=== PATIENT | male | born 1940 | race Caucasian/White ===

== ENCOUNTER → 2019-10-11 12:49 | Outpatient (CLI) | payer MEDICARE, SELFPAY ==
--- NOTE | 2019-10-11 13:00 | XR_ITS ---
PROCEDURE: XR CERVICAL SPINE 5V CLINICAL INDICATION: LT SHOULDER PAIN LEFT SHOULDER PAIN, NECK PAIN COMPARISON: No exams were available for comparison FINDINGS: There is normal alignment. There is degenerative disc disease at C5-C6 and C6-C7. Facet arthritic changes are present from C3-C7. There is foraminal narrowing on the right at C3-C4, C5-C6 and on the left at C3-C4 C4-C5 and C5-C6. No fracture or dislocation. There is mild biapical thickening of the lungs. 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
== END ==
PROVIDERS: PCP Family Medicine; Visit Provider Family Medicine
DX: M25.512 Pain in left shoulder (principal)
CPT/HCPCS: 72050

== ENCOUNTER → 2020-07-19 11:00 | Outpatient (CLI) | payer MEDICARE, SELFPAY ==
[2020-07-20 10:56] LABS: Covid-19 Nasal PCR Sendout P&C Negative
== END ==
PROVIDERS: PCP Family Medicine; Visit Provider Nurse Practitioner Family
DX: Z20.822 Contact with and (suspected) exposure to COVID-19 (principal)
CPT/HCPCS: U0004

== ENCOUNTER → 2022-12-03 09:55 | Outpatient (CLI) | payer MEDICARE, SELFPAY ==
--- NOTE | 2022-12-03 | CA_ITS ---
FINAL REPORT CLINICAL HISTORY: HTN, Rt carotid bruit COMPARISON: none FINDINGS: RIGHT CAROTID: CCA PSV: 121 cm/sec ICA PSV: 124 cm/sec ICA/CCA PSV ratio: 1.20 . Comments: Mild plaque disease is noted. LEFTCAROTID: CCA PSV: 167 cm/sec ICA PSV: 114 cm/sec ICA/CCA PSV ratio: 0.83 . Comments: Mild plaque disease is noted. Antegrade flow is seen within the vertebral arteries. Dominant mass in the left thyroid. Recommend dedicated thyroid ultrasound. IMPRESSION: Less than 50% bilateral stenosis. Dominant mass left thyroid. Recommend dedicated thyroid ultrasound. Reviewed, Interpreted and Dictated by Fma Devine MD Transcribed by Vaishali Asencio Authenticated and . [facility]
== END ==
LOC: RT 09:55
PROVIDERS: PCP Family Medicine; Visit Provider Family Medicine
DX: R09.89 Other specified symptoms and signs involving the circulatory and respiratory systems (principal)
CPT/HCPCS: 93880

== ENCOUNTER → 2022-12-24 10:42 | Outpatient (CLI) | payer MEDICARE, SELFPAY ==
--- NOTE | 2022-12-24 10:47 | US_ITS ---
FINAL REPORT CLINICAL HISTORY: THYROID MASS,NECK MASS COMPARISON: None FINDINGS: Thyroid ultrasound: The right thyroid gland measures 4.4 x 1.9 x 1.5 cm in size. No focal masses or nodules are identified. The left thyroid gland is slightly enlarged, measuring 5.1 x 2.6 x 2.6 cm in size. There is a small cyst identified in the left thyroid gland, which measures 1 x 0.6 x 0.5 cm in size, compatible with a TI-RADS 1 category nodule. There is a dominant mass measuring 3 x 2.6 x 2.5 cm, solid, isoechoic, category TI-RADS 3. The isthmus measures 0.5 cm in thickness. IMPRESSION: Left lobe of the thyroid gland, solid, isoechoic, and a TI-RADS category 3 nodule. Would recommend ultrasound-directed biopsy. Small cystic mass left lobe of thyroid up to 1 cm in greatest diameter, TI-RADS category 1. Reviewed, Interpreted and Dictated by Gonzales Cedeno III, MD Transcribed by Serene Kelley Authenticated and [facility]
== END ==
PROVIDERS: PCP Family Medicine; Visit Provider Family Medicine
DX: R07.9 Chest pain, unspecified (principal); R22.1 Localized swelling, mass and lump, neck
CPT/HCPCS: 76536

== ENCOUNTER → 2023-01-21 07:40 | Outpatient (CLI) | payer MEDICARE, SELFPAY ==
--- NOTE | 2023-01-21 07:45 | US_ITS ---
FINAL REPORT CLINICAL HISTORY: LT NODULE FINDINGS: ULTRASOUND GUIDED THYROID BIOPSY HISTORY: Left thyroid nodule/mass. TECHNIQUE: Informed consent was obtained from the patient. Timeout procedure was performed prior to beginning. Limited sonographic evaluation of thyroid gland was performed to localize lesion of interest. The neck was prepped in a routine sterile fashion and locally anesthetized with 1% lidocaine. FNA was performed with 25-gauge needle under direct sonographic visualization. 4 passes were made. Cytology is pending. Procedure was well tolerated, although patient did experience some lightheadedness during the procedure. CONCLUSION: Technically successful thyroid fine needle aspiration of a left thyroid mass. Reviewed, Interpreted and Dictated by Fam Devine MD Transcribed by Linda Chowdhury PA-C Authenticated and [facility]
== END ==
PROVIDERS: PCP Family Medicine; Visit Provider Otolaryngology
DX: D44.0 Neoplasm of uncertain behavior of thyroid gland (principal)
CPT/HCPCS: 10005; 76536; 88173

== ENCOUNTER 2024-01-29 09:40 | Outpatient (CLI) | payer MEDICARE, SELFPAY ==
--- NOTE | 2024-01-29 09:46 | US_ITS ---
FINAL REPORT TECHNIQUE: Real-time grayscale and color ultrasound of the thyroid was performed. CLINICAL HISTORY: NEOPLASM/THYROID GLAND COMPARISON: 01/21/2023 FINDINGS: The thyroid gland measures 4.9 x 1.8 x 1.4 cm on the right and 5.3 x 3.9 x 3.0 cm on the left. The isthmus measures 0.9 cm. The parenchyma is unremarkable . Nodules: 3.2 x 3.0 cm left TR 4 lesion has previously been biopsied. Multiple subcentimeter anechoic and solid structures in both lobes of the thyroid are stable. 1.4 cm TR 4 nodule superior left lobe. IMPRESSION: Dominant 3.2 cm mass left lobe of the thyroid has previously been biopsied. Other lesions appear stable. Reviewed, Interpreted and Dictated by Blaise Conde MD Transcribed by Vaishali Asencio Authenticated and [facility]
== END 2024-01-29 23:59 | disposition home or self-care (01) ==
LOC: RAD 09:41
PROVIDERS: PCP Family Medicine; Visit Provider Otolaryngology
DX: D44.0 Neoplasm of uncertain behavior of thyroid gland (principal)
CPT/HCPCS: 76536

== ENCOUNTER 2025-01-16 08:38 | Outpatient (CLI) | payer MEDICARE, SELFPAY ==
--- OUTSIDE RECORDS SUMMARY | 2025-01-16 08:41 | XMS_ITS | Data Portability ---
Author Organization HARMEET KEDAR Davis BAILEY CLOSED Address [address] [facility] [address] [place] [address] Care Team Providers Care Skin Care Instructor Name Role Phone SRUTHI RIDER Referring Provider Assessment No assessment recorded. Plan of Treatment Reminders Order Date Submit Date Provider Last Modified By Organization Details Last Modified Time Details Appointments None recorded. Lab urinalysis panel, auto [address] [facility], [address], [address], [place], [address], 5 16:23:42 urinalysis panel, auto 2022 023 [email or web address] [facility], [address], [address], [place], [address], 3 21:27:37 urinalysis panel, auto [address] [facility], [address], [address], [place], [address], 3 15:19:54 PSA, serum or plasma [address] [facility], [address], [address], [place], [address], 15:19:54 PSA, serum or plasma 2021 [email or web address] [facility], [address], [address], [place], [address], 12:58:51 urinalysis panel, auto 2021 [email or web address] [facility], [address], [address], [place], [address], 12:58:51 urinalysis panel, auto [address] [facility], [address], [address], [place], [address], 18:59:41 Referral None recorded. Procedures None recorded. Surgeries None recorded. Imaging None recorded. Medication Orders None recorded. Patient TargetsNo targets recorded. Patient Instructions Encounter Date Encounter Id Patient Instructions Last Modified By Organization Details Last Modified Time 11/05/2022 [id number] learning about healthy weight [email or web address] Not available 11/07/2022 15:19:53 Reason for Referral None Reported. Results Created Date Observation Date Name Description Value Unit Range Abnormal Flag Note LastModifiedBy Organization Detail LastModifiedTime 10/24/19 22 10/23/2021 urina lysis panel , auto Unknown Analyte Clean Catch Not Available [facility] [address], [place], [address], 10/23/2021 15:46:08 10/24/1910/23/2021 urina lysis panel , auto Unknown Analyte Yellow Not Available [facility] [address], [place], [address], 10/23/2021 15:46:08 10/24/19 22 10/23/2021 urina lysis panel , auto Unknown Analyte Clear Not Available [facility] [address], [place], [address], 10/23/2021 15:46:08 10/24/19 22 10/23/2021 urina lysis panel , auto Unknown Analyte 1.010 Not Available [facility] [address], [place], [address], 10/23/2021 15:46:08 10/24/19 22 10/23/2021 urina lysis panel , auto Unknown Analyte 1.003- 1.035 Not Available [facility] [address], [place], [address], 10/23/2021 15:46:08 10/24/19 22 10/23/2021 urina lysis panel , auto Unknown Analyte 6.0 Not Available [facility] [address], [place], [address], 10/23/2021 15:46:08 10/24/19 22 10/23/2021 urina lysis panel , auto Unknown Analyte 5.0-8. 0 Not Available [facility] [address], [place], [address], 10/23/2021 15:46:08 10/24/19 22 10/23/2021 urina lysis panel , auto Unknown Analyte Negati ve Not Available [facility] [address], [place], [address], 10/23/2021 15:46:08 10/24/19 22 10/23/2021 urina lysis panel , auto Unknown Analyte Negati ve Not Available [facility] [address], [place], [address], 10/23/2021 15:46:08 10/24/19 22 10/23/2021 urina lysis panel , auto Unknown Analyte Negati ve Not Available [facility] [address], [place], [address], 10/23/2021 15:46:08 10/24/19 22 10/23/2021 urina lysis panel , auto Unknown Analyte Negati ve Not Available [facility] [address], [place], [address], 10/23/2021 15:46:08 10/24/19 22 10/23/2021 urina lysis panel , auto Unknown Analyte Negati ve Not Available [facility] [address], [place], [address], 10/23/2021 15:46:08 10/24/19 22 10/23/2021 urina lysis panel , auto Unknown Analyte Negati ve Not Available [facility] [address], [place], [address], 10/23/2021 15:46:08 10/24/19 22 10/23/2021 urina lysis panel , auto Unknown Analyte Normal Not Available [facility] [address], [place], [address], 10/23/2021 15:46:08 10/24/19 22 10/23/2021 urina lysis panel , auto Unknown Analyte Normal Not Available [facility] [address], [place], [address], 10/23/2021 15:46:08 10/24/19 22 10/23/2021 urina lysis panel , auto Unknown Analyte Negati ve Not Available [facility] [address], [place], [address], 10/23/2021 15:46:08 10/24/19 22 10/23/2021 urina lysis panel , auto Unknown Analyte Negati ve Not Available [facility] [address], [place], [address], 10/23/2021 15:46:08 10/24/19 22 10/23/2021 urina lysis panel , auto Unknown Analyte Normal Not Available [facility] [address], [place], [address], 10/23/2021 15:46:08 10/24/19 22 10/23/2021 urina lysis panel , auto Unknown Analyte Normal 1 mg/dl Not Available [facility] [address], [place], [address], 10/23/2021 15:46:08 10/24/19 22 10/23/2021 urina lysis panel , auto Unknown Analyte Negati ve Not Available [facility] [address], [place], [address], 10/23/2021 15:46:08 10/24/19 22 10/23/2021 urina lysis panel , auto Unknown Analyte Negati ve Not Available [facility] [address], [place], [address], 10/23/2021 15:46:08 10/24/19 22 10/23/2021 urina lysis panel , auto Unknown Analyte Negati ve Not Available [facility] [address], [place], [address], 10/23/2021 15:46:08 10/24/19 22 10/23/2021 urina lysis panel , auto Unknown Analyte Negati ve Not Available [facility] [address], [place], [address], 10/23/2021 15:46:08 04/23/2004/23/2022 urina lysis panel , auto Unknown Analyte Clean Catch Not Available [facility] [address], [place], [address], 04/23/2022 13:54:00 04/23/2004/23/2022 urina lysis panel , auto Unknown Analyte Yellow Not Available [facility] [address], [place], [address], 04/23/2022 13:54:00 04/23/2004/23/2022 urina lysis panel , auto Unknown Analyte Clear Not Available [facility] [address], [place], [address], 04/23/2022 13:54:00 04/23/2004/23/2022 urina lysis panel , auto Unknown Analyte 1.010 Not Available [facility] [address], [place], [address], 04/23/2022 13:54:00 04/23/2004/23/2022 urina lysis panel , auto Unknown Analyte 1.003- 1.035 Not Available [facility] [address], [place], [address], 04/23/2022 13:54:00 04/23/2004/23/2022 urina lysis panel , auto Unknown Analyte 6.0 Not Available [facility] [address], [place], [address], 04/23/2022 13:54:00 04/23/2004/23/2022 urina lysis panel , auto Unknown Analyte 5.0-8. 0 Not Available [facility] [address], [place], [address], 04/23/2022 13:54:00 04/23/2004/23/2022 urina lysis panel , auto Unknown Analyte Negati ve Not Available [facility] [address], [place], [address], 04/23/2022 13:54:00 04/23/2004/23/2022 urina lysis panel , auto Unknown Analyte Negati ve Not Available [facility] [address], [place], [address], 04/23/2022 13:54:00 04/23/2004/23/2022 urina lysis panel , auto Unknown Analyte Negati ve Not Available [facility] [address], [place], [address], 04/23/2022 13:54:00 04/23/20 22 04/23/2022 urina lysis panel , auto Unknown Analyte Negati ve Not Available [facility] [address], [place], [address], 04/23/2022 13:54:00 04/23/2004/23/2022 urina lysis panel , auto Unknown Analyte Negati ve Not Available [facility] [address], [place], [address], 04/23/2022 13:54:00 04/23/2004/23/2022 urina lysis panel , auto Unknown Analyte Negati ve Not Available [facility] [address], [place], [address], 04/23/2022 13:54:00 04/23/2004/23/2022 urina lysis panel , auto Unknown Analyte Normal Not Available [facility] [address], [place], [address], 04/23/2022 13:54:00 04/23/2004/23/2022 urina lysis panel , auto Unknown Analyte Normal Not Available [facility] [address], [place], [address], 04/23/2022 13:54:00 04/23/2004/23/2022 urina lysis panel , auto Unknown Analyte Negati ve Not Available [facility] [address], [place], [address], 04/23/2022 13:54:00 04/23/2004/23/2022 urina lysis panel , auto Unknown Analyte Negati ve Not Available [facility] [address], [place], [address], 04/23/2022 13:54:00 04/23/2004/23/2022 urina lysis panel , auto Unknown Analyte Normal Not Available [facility] [address], [place], [address], 04/23/2022 13:54:00 04/23/2004/23/2022 urina lysis panel , auto Unknown Analyte Normal 1 mg/dl Not Available [facility] [address], [place], [address], 04/23/2022 13:54:00 04/23/2004/23/2022 urina lysis panel , auto Unknown Analyte Negati ve Not Available [facility] [address], [place], [address], 04/23/2022 13:54:00 04/23/2004/23/2022 urina lysis panel , auto Unknown Analyte Negati ve Not Available [facility] [address], [place], [address], 04/23/2022 13:54:00 04/23/20 22 04/23/2022 urina lysis panel , auto Unknown Analyte Negati ve Not Available [facility] [address], [place], [address], 04/23/2022 13:54:00 04/23/20 22 04/23/2022 urina lysis panel , auto Unknown Analyte Negati ve Not Available [facility] [address], [place], [address], 04/23/2022 13:54:00 04/24/20 22 04/24/2022 PSA, serum or plasm a PSA 14.7 NG/mL 0.0 - 4.0 Not Available [facility] [address] [address], [place], [address], 04/23/2022 13:53:48 11/06/19 23 11/05/2022 PSA, serum or plasm a PSA 15.2 NG/mL 0.0 - 4.0 Not Available [facility] [address], [place], [address], 11/05/2022 16:20:08 11/06/19 23 11/05/2022 urina lysis panel , auto Unknown Analyte Clean Catch Not Available [facility] [address], [place], [address], 11/05/2022 16:18:20 11/06/19 23 11/05/2022 urina lysis panel , auto Unknown Analyte Yellow Not Available [facility] [address], [place], [address], 11/05/2022 16:18:20 11/06/19 23 11/05/2022 urina lysis panel , auto Unknown Analyte Clear Not Available [facility] [address] [facility] [address], [place], [address], 11/05/2022 16:18:20 11/06/19 23 11/05/2022 urina lysis panel , auto Unknown Analyte 1.020 Not Available [facility] [address] [facility] [address], [place], [address], 11/05/2022 16:18:20 11/06/19 23 11/05/2022 urina lysis panel , auto Unknown Analyte 1.003- 1.035 Not Available [facility] [address] [facility] [address], [place], [address], 11/05/2022 16:18:20 11/06/19 23 11/05/2022 urina lysis panel , auto Unknown Analyte 5.0 Not Available [facility] [address] [place] [address] [address], [place], [address], 11/05/2022 16:18:20 11/06/19 23 11/05/2022 urina lysis panel , auto Unknown Analyte 5.0-8. 0 Not Available [facility] [address] [place] [address] [address], [place], [address], 11/05/2022 16:18:20 11/06/19 23 11/05/2022 urina lysis panel , auto Unknown Analyte 25 Husam/ul Trace Not Available [facility] [address] [facility] [address], [place], [address], 11/05/2022 16:18:20 11/06/19 23 11/05/2022 urina lysis panel , auto Unknown Analyte Negati ve Not Available [facility] [address], [place], [address], 11/05/2022 16:18:20 11/06/19 23 11/05/2022 urina lysis panel , auto Unknown Analyte Negati ve Not Available [facility] [address], [place], [address], 11/05/2022 16:18:20 11/06/19 23 11/05/2022 urina lysis panel , auto Unknown Analyte Negati ve Not Available [facility] [address], [place], [address], 11/05/2022 16:18:20 11/06/19 23 11/05/2022 urina lysis panel , auto Unknown Analyte Trace Not Available [facility] [address], [place], [address], 11/05/2022 16:18:20 11/06/19 23 11/05/2022 urina lysis panel , auto Unknown Analyte Negati ve Not Available [facility] [address], [place], [address], 11/05/2022 16:18:20 11/06/19 23 11/05/2022 urina lysis panel , auto Unknown Analyte Normal Not Available [facility] [address] [place] [address] [address], [place], [address], 11/05/2022 16:18:20 11/06/19 23 11/05/2022 urina lysis panel , auto Unknown Analyte Normal Not Available [facility] [address], [place], [address], 11/05/2022 16:18:20 11/06/19 23 11/05/2022 urina lysis panel , auto Unknown Analyte Negati ve Not Available [facility] [address], [place], [address], 11/05/2022 16:18:20 11/06/19 23 11/05/2022 urina lysis panel , auto Unknown Analyte Negati ve Not Available [facility] [address], [place], [address], 11/05/2022 16:18:20 11/06/19 23 11/05/2022 urina lysis panel , auto Unknown Analyte 1 mg/dl Not Available [facility] [address], [place], [address], 11/05/2022 16:18:20 11/06/19 23 11/05/2022 urina lysis panel , auto Unknown Analyte Normal 1 mg/dl Not Available [facility] [address], [place], [address], 11/05/2022 16:18:20 11/06/19 23 11/05/2022 urina lysis panel , auto Unknown Analyte Negati ve Not Available [facility] [address], [place], [address], 11/05/2022 16:18:20 11/06/19 23 11/05/2022 urina lysis panel , auto Unknown Analyte Negati ve Not Available [facility] [address], [place], [address], 11/05/2022 16:18:20 11/06/19 23 11/05/2022 urina lysis panel , auto Unknown Analyte Negati ve Not Available [facility] [address], [place], [address], 11/05/2022 16:18:20 11/06/19 23 11/05/2022 urina lysis panel , auto Unknown Analyte Negati ve Not Available [facility] [address], [place], [address], 11/05/2022 16:18:20 05/13/20 23 05/13/2023 urina lysis panel , auto Unknown Analyte Clean Catch Not Available [facility] [address], [place], [address], 05/13/2023 13:15:54 05/13/20 23 05/13/2023 urina lysis panel , auto Unknown Analyte Yellow Not Available [facility] [address], [place], [address], 05/13/2023 13:15:54 05/13/20 23 05/13/2023 urina lysis panel , auto Unknown Analyte Clear Not Available [facility] [address], [place], [address], 05/13/2023 13:15:54 05/13/20 23 05/13/2023 urina lysis panel , auto Unknown Analyte 1.000 Not Available [facility] [address], [place], [address], 05/13/2023 13:15:54 05/13/20 23 05/13/2023 urina lysis panel , auto Unknown Analyte 1.003- 1.035 Not Available [facility] [address], [place], [address], 05/13/2023 13:15:54 05/13/2005/13/2023 urina lysis panel , auto Unknown Analyte 7.0 Not Available [facility] [address], [place], [address], 05/13/2023 13:15:54 05/13/20 23 05/13/2023 urina lysis panel , auto Unknown Analyte 5.0-8. 0 Not Available [facility] [address], [place], [address], 05/13/2023 13:15:54 05/13/20 23 05/13/2023 urina lysis panel , auto Unknown Analyte Negati ve Not Available [facility] [address], [place], [address], 05/13/2023 13:15:54 05/13/2005/13/2023 urina lysis panel , auto Unknown Analyte Negati ve Not Available [facility] [address], [place], [address], 05/13/2023 13:15:54 05/13/20 23 05/13/2023 urina lysis panel , auto Unknown Analyte Negati ve Not Available [facility] [address], [place], [address], 05/13/2023 13:15:54 05/13/2005/13/2023 urina lysis panel , auto Unknown Analyte Negati ve Not Available [facility] [address], [place], [address], 05/13/2023 13:15:54 05/13/2005/13/2023 urina lysis panel , auto Unknown Analyte Negati ve Not Available [facility] [address], [place], [address], 05/13/2023 13:15:54 05/13/20 23 05/13/2023 urina lysis panel , auto Unknown Analyte Negati ve Not Available [facility] [address], [place], [address], 05/13/2023 13:15:54 05/13/20 23 05/13/2023 urina lysis panel , auto Unknown Analyte Normal Not Available [facility] [address], [place], [address], 05/13/2023 13:15:54 05/13/2005/13/2023 urina lysis panel , auto Unknown Analyte Normal Not Available [facility] [address], [place], [address], 05/13/2023 13:15:54 05/13/2005/13/2023 urina lysis panel , auto Unknown Analyte Negati ve Not Available [facility] [address], [place], [address], 05/13/2023 13:15:54 05/13/20 23 05/13/2023 urina lysis panel , auto Unknown Analyte Negati ve Not Available [facility] [address], [place], [address], 05/13/2023 13:15:54 05/13/2005/13/2023 urina lysis panel , auto Unknown Analyte Normal Not Available [facility] [address], [place], [address], 05/13/2023 13:15:54 05/13/2005/13/2023 urina lysis panel , auto Unknown Analyte Normal 1 mg/dl Not Available [facility] [address], [place], [address], 05/13/2023 13:15:54 05/13/2005/13/2023 urina lysis panel , auto Unknown Analyte Negati ve Not Available [facility] [address], [place], [address], 05/13/2023 13:15:54 05/13/2005/13/2023 urina lysis panel , auto Unknown Analyte Negati ve Not Available [facility] [address], [place], [address], 05/13/2023 13:15:54 05/13/2005/13/2023 urina lysis panel , auto Unknown Analyte Negati ve Not Available [facility] [address], [place], [address], 05/13/2023 13:15:54 05/13/20 23 05/13/2023 urina lysis panel , auto Unknown Analyte Negati ve Not Available [facility] [address], [place], [address], 05/13/2023 13:15:54 08/12/19 25 08/12/2024 urina lysis panel , auto Unknown Analyte Clean Catch Not Available [facility] [address], [place], [address], 08/12/2024 11:23:15 08/12/19 25 08/12/2024 urina lysis panel , auto Unknown Analyte Yellow Not Available [facility] [address], [place], [address], 08/12/2024 11:23:15 08/12/19 25 08/12/2024 urina lysis panel , auto Unknown Analyte Clear Not Available [facility] [address], [place], [address], 08/12/2024 11:23:15 08/12/19 25 08/12/2024 urina lysis panel , auto Unknown Analyte 1.010 Not Available [facility] [address], [place], [address], 08/12/2024 11:23:15 08/12/19 25 08/12/2024 urina lysis panel , auto Unknown Analyte 1.003- 1.035 Not Available [facility] [address], [place], [address], 08/12/2024 11:23:15 08/12/19 25 08/12/2024 urina lysis panel , auto Unknown Analyte 5.0 Not Available [facility] [address], [place], [address], 08/12/2024 11:23:15 08/12/19 25 08/12/2024 urina lysis panel , auto Unknown Analyte 5.0-8. 0 Not Available [facility] [address], [place], [address], 08/12/2024 11:23:15 08/12/19 25 08/12/2024 urina lysis panel , auto Unknown Analyte Negati ve Not Available [facility] [address], [place], [address], 08/12/2024 11:23:15 08/12/19 25 08/12/2024 urina lysis panel , auto Unknown Analyte Negati ve Not Available [facility] [address], [place], [address], 08/12/2024 11:23:15 08/12/19 25 08/12/2024 urina lysis panel , auto Unknown Analyte Negati ve Not Available [facility] [address], [place], [address], 08/12/2024 11:23:15 08/12/19 25 08/12/2024 urina lysis panel , auto Unknown Analyte Negati ve Not Available [facility] [address], [place], [address], 08/12/2024 11:23:15 08/12/19 25 08/12/2024 urina lysis panel , auto Unknown Analyte Negati ve Not Available [facility] [address], [place], [address], 08/12/2024 11:23:15 08/12/19 25 08/12/2024 urina lysis panel , auto Unknown Analyte Negati ve Not Available [facility] [address], [place], [address], 08/12/2024 11:23:15 08/12/19 25 08/12/2024 urina lysis panel , auto Unknown Analyte Normal Not Available [facility] [address], [place], [address], 08/12/2024 11:23:15 08/12/19 25 08/12/2024 urina lysis panel , auto Unknown Analyte Normal Not Available [facility] [address], [place], [address], 08/12/2024 11:23:15 08/12/19 25 08/12/2024 urina lysis panel , auto Unknown Analyte Negati ve Not Available [facility] [address], [place], [address], 08/12/2024 11:23:15 08/12/19 25 08/12/2024 urina lysis panel , auto Unknown Analyte Negati ve Not Available [facility] [address], [place], [address], 08/12/2024 11:23:15 08/12/19 25 08/12/2024 urina lysis panel , auto Unknown Analyte Normal Not Available [facility] [address], [place], [address], 08/12/2024 11:23:15 08/12/19 25 08/12/2024 urina lysis panel , auto Unknown Analyte Normal 1 mg/dl Not Available [facility] [address], [place], [address], 08/12/2024 11:23:15 08/12/19 25 08/12/2024 urina lysis panel , auto Unknown Analyte Negati ve Not Available [facility] [address], [place], [address], 08/12/2024 11:23:15 08/12/19 25 08/12/2024 urina lysis panel , auto Unknown Analyte Negati ve Not Available [facility] [address], [place], [address], 08/12/2024 11:23:15 08/12/19 25 08/12/2024 urina lysis panel , auto Unknown Analyte Negati ve Not Available [facility] [address], [place], [address], 08/12/2024 11:23:15 08/12/19 25 08/12/2024 urina lysis panel , auto Unknown Analyte Negati ve Not Available [facility] [address], [place], [address], 08/12/2024 11:23:15 Result Notes None recorded. Medical Equipment None Reported. Allergies No known drug allergies Medications Name Sig Start Date Stop Date Status Note LastModified by Organization Details LastModified Time trazodone 50 mg tablet active Not Available Not Available Not Available lisinopril 20 mg tablet Daily active Not Available Not Available Not Available allopurinol 100 mg tablet active Not Available Not Available No t Available simvastatin 40 mg tablet Daily active Not Available Not Available Not Available verapamil ER (SR) 240 mg tablet,extended release active Not Available Not Available Not Available hydrochlorothiazi de 25 mg tablet Daily active Not Available Not Availa ble Not Available verapamil Two times a day active Frequ ency: bid;M edica tion Descr iptio n: verap ramesh; Dosag e:1; refil ls:0 Not Available Not Available Not Available Vitals Date Recorded Body height Body mass index (BMI) Body weight Provider Name and Address Organization Details Last Updated DateTime 08/12/2024 187.96 cm 24.4 kg/m2 82563.55 g Yvonneterry Streeter [facility] 08/12/2024 11:25:19 Date Recorded Body weight Body mass index (BMI) Body height Provider Name and Address Organization Details Last Updated DateTime 10/23/2021 17491.51 g 25 kg/m2 187.96 cm Mala Floyd [facility] 10/23/2021 15:43:39 Date Recorded Body height Body mass index (BMI) Body weight Provider Name and Address Organization Details Last Updated DateTime 11/05/2022 187.96 cm 25 kg/m2 72825.51 g Aye Ross [facility] 11/05/2022 16:17:38 Date Recorded Body height Body mass index (BMI) Body weight Provider Name and Address Organization Details Last Updated DateTime 05/13/2023 187.96 cm 25 kg/m2 87705.51 g Jelani La [facility] 05/13/2023 13:04:14 Social History Question Answer Notes LastModified by Organizat ion Details LastModified Time Tobacco Smoking Status Never Smoker Mala Floyd [facility] 10/23/2021 15:44:37 What Was The Date Of Your Most Recent Tobacco Screening? 08/12/2024 [email or web address] Information not available 08/12/2024 What Is Your Relationship Status? [email or web address] Information not available 10/23/2021 Has Tobacco Cessation Counseling Been Provided? No Information not available 10/23/2021 Have You Recently Traveled Abroad? No [email or web address] Information not available 10/23/2021 Sex: Unknown Functional Status Question Answer Note LastModified by Organizat ion Details LastModified Time Do you use any illicit or recreational drugs? No Information not available 10/23/2021 Do you or have you ever used any other forms of tobacco or nicotine? Yes [email or web address] Information not available 10/23/2021 What is your level of alcohol consumption? None [email or web address] Information not available 10/23/2021 Do you or have you ever used smokeless tobacco? Former smokeless tobacco user [email or web address] Information not available 10/23/2021 Do you or have you ever used e-cigarettes or vape? Never used electronic cigarettes [email or web address] Information not available 10/23/2021 Mental Status None recorded. Family History Nothing Reported. Medical History Condition Response Hepatitis Y Hypertension Y Past Encounters Encounter ID Performer Location Encounter Start Date Encounter Closed Date Diagnosis/Indication Diagnosis SNOMED-CT Code Diagnosis ICD10 Code Diagnosis Note [id number] CECELIA CRUZ MD [facility] [address] [address] 10/23/2021 13:43:40 10/23/2021 16:21:20 Prostate specific antigen above reference range 509869631 R97.20 We discussed whether to proceed with needle biopsy of the prostate or not. Certainly with his volume of prostate tissue his PSA could easily be elevated for benign reasons. He would like to postpone interventi on at this time. He'll follow up in 6 months with repeat PSA Large prostate 089188392 N40.0 Relatively symptom-fr ee [id number] CECELIA CRUZ MD [facility] [address] [place] [address] 04/23/2022 13:34:48 04/23/2022 14:31:25 Prostate specific antigen above reference range 765153558 R97.20 Follow-up 6 months with PSA [id number] [facility] [address] [place] [address] 11/05/2022 13:56:18 11/05/2022 16:30:33 Benign prostatic hyperplasia with outflow obstruction 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.1 Follow-up 6 months with PSA Prostate s pecific antigen above reference range 313815879 R97.20 Follow-up 6 months with PSA [id number] CECELIA CRUZ MD [facility] [address] [address] 05/13/2023 12:17:16 05/13/2023 13:28:26 Prostate specific antigen above reference range 379561735 R97.20 Follow-up 12 months with PSA Large prostate 782466263 N40.0 Relatively symptom-fr ee [id number] CECELIA CRUZ MD [facility] [address] [address] 08/12/2024 10:15:33 08/12/2024 11:58:26 Prostate specific antigen above reference range 349444716 R97.20 Follow-up 12 months with PSA Large prostate 370307190 N40.0 Relatively symptom-fr ee Health Concerns Section Related Observation LastModified by Organization Detai ls LastModified Time None Recorded Concern Status LastModified by Organization Details LastModified Time None Recorded Advance Directives Directive None Recorded Payers Insurance Date Sequence Insurance Name Policy Number Policy Salazar Covered Member ID Salazar Member ID Guarantor Name 08/12/2024 1 [place] Gonzales Barrientos Jesus [id number] Gonzales Lee 08/15/2024 2 AARP (MEDICARE SUPPLEMENT) Gonzales Lee [id number] Gonzales Iliana Jesus Notes Date Note Type Note Provider Name and Address Organization Details Recorded Time 10/23/2021 text/html Patient is here with recent PSA value of 15.3. Percent free PSA was 18. He is not recalled previous PSA levels. He has had no significant change in urination. He typically sleeps through the night and has basically no complaints. CECELIA CRUZ MD [address] [place] [address], [address], [facility] 03/09/2022 19:00:13 04/23/2022 text/html Patient is here for scheduled 6 month follow-up regarding elevated PSA. His PSA in September was 15.3 with percent free PSA of 18. We discussed needle biopsy of the prostate at that time and he elected to observe this. He does have a very large benign feeling prostate at least 80 g. We repeated his PSA today and it was 14.7. He would like to continue to observe. CECELIA CRUZ MD [facility] [place], [address], [facility] 04/27/2022 12:59:28 11/05/2022 text/html Patient is here for follow-up of elevated PSA. His PSA in September 2021 was 15.3 with a percent free of 18. His PSA at follow-up in March was 14.7 we discussed needle biopsy of the prostate. We decided to observe him. His PSA today was 15.2. We discussed the stability. His prostate upon exam is quite huge at least 80 g. I suggest conservative follow-up. CECELIA CRUZ MD [address] [place] [address] [place] [place], [address], [facility] 11/07/2022 15:20:57 05/13/2023 text/html Patient is here for scheduled 6-month follow-up regarding previous elevated PSA. His PSA in September of last year was 15.3 with a percent free of 18. In March 2022 his PSA was 14.7 and decided to continue to observe him. He does have a known huge prostate. PSA in October was 15.2. PSA on the was 15.1 with a percent free of 20.7. I suggest continued observation. CECELIA CRUZ MD [address] [place] [address] [place], [address], [facility] 05/13/2023 21:28:24 08/12/2024 text/html Patient is here for 1 year follow-up. He was last seen in April 2023 for chronically elevated PSA. For several years he is a PSA around 15 with percent free of 18. He had a recent PSA in April 2016 0.3 with percent free of 21. He does have a huge prostate and minimal obstructive symptoms. He typically has nocturia x 1-2 and takes no urologic medications. Considering his huge prostate and relative stability of PSA levels we discussed that it is unlikely that this is significantly associated with prostate cancer. I suggest continued follow-up with yearly PSA. CECELIA CRUZ MD [address] [facility] [place], [address], [facility] 08/14/2024 16:24:15
--- NOTE | 2025-01-16 08:46 | US_ITS ---
FINAL REPORT TECHNIQUE: Ultrasound images of the thyroid were obtained. CLINICAL HISTORY: THYROID NODULE 1YR FOLLOW-UP COMPARISON: 01/29/2024 FINDINGS: The right lobe of the thyroid measures 4.7 x 1.2 x 1.5 cm. It is normal in echogenicity. The left lobe of the thyroid measures 5.4 x 3.6 x 3.2 cm. It is normal in echogenicity. In the right lobe is an 8 mm TR 3 nodule, previously measured 6 mm. In the left lobe are 2 masses identified. The largest measures up to 3.7 cm, previously measured 3.2 cm. Smaller mass measures up to 1.9 cm and is unchanged. However, there are new areas of cystic degeneration within the smaller lesion. IMPRESSION: Mild interval enlargement of dominant left lobe nodule. FNA recommended if not previously performed. Otherwise, 12-month follow-up is recommended. Interval enlargement of right lobe nodule, recommend 1 year follow-up. Reviewed, Interpreted and Dictated by Fam Devine MD Transcribed by Niru Beltran Authenticated and . [facility]
== END 2025-01-16 23:59 | disposition home or self-care (01) ==
LOC: RAD 08:38
PROVIDERS: PCP Family Medicine; Visit Provider Otolaryngology
DX: E04.1 Nontoxic single thyroid nodule (principal); D34 Benign neoplasm of thyroid gland
CPT/HCPCS: 76536